=== PATIENT | female | born 1995 | race Caucasian/White ===

== ENCOUNTER 2017-09-21 07:47 | Day surgery (SDC) | payer BC, OTHER ==
[~2017-09-21 07:47] MED LIST: Lactated Ringers 1,000 ML IV SCH
[2017-09-21] MEDS ORDERED: Lidocaine 2% 100 MG/5 ML Syringe IVPUSH ONE (08:50)
[2017-09-21] MEDS ORDERED: Ondansetron 4 MG/2 ML SDV IVPUSH ONE (08:50)
[2017-09-21] MEDS ORDERED: Propofol 200 MG/20 ML SDV IV ONE (08:50)
--- NOTE | 2017-09-21 09:33 | PCM.OPNOTE ---
- General Post-Op/Procedure Note Date of Surgery/Procedure: 09/21/17 Operative Procedure(s): egd with bx. c scope with bx Findings: gastritis esophagitis normal appearing colon and duodenum Pre Op Diagnosis: Hx of abd pain, nausea vomiting, diarrhea bloating and blood per rectum. family hx of Crohn's disease Post-Op Diagnosis: gastritis. esophagitis. normal appearing colon and duodenum Anesthesia Technique: MAC Primary Surgeon: Alfred Weaver Anesthesia Provider: Kendrick Bhatia Pathology: stomach duodenum esophagus colon Complications: None Condition: Good Free Text/Narrative:: see dictation
[2017-09-21 11:39] VITALS: BP 106/61
--- NOTE | 2017-09-21 14:20 | OR ---
DATE OF OPERATION: 09/21/2017 SURGEON: Alfred Weaver MD PROCEDURES PERFORMED: 1. EGD with cold forceps biopsy. 2. Colonoscopy with cold forceps biopsy. PREOPERATIVE DIAGNOSES: 1. History of abdominal pain and bloating. 2. Nausea, vomiting, diarrhea, and blood per rectum. POSTOPERATIVE DIAGNOSES: 1. Gastritis. 2. Esophagitis. 3. Normal colonoscopy. INDICATIONS FOR PROCEDURE: This is a 21-year-old white female who is referred with the above-mentioned complaints. She has a longstanding history of anxiety as well as Crohn disease in her family. Workup to date has been negative. She was offered and accepted an EGD as well as a colonoscopy to further delineate her issues. DESCRIPTION OF PROCEDURE: After an excellent IV sedation was administered, the bite block was inserted. The flexible endoscope was passed without difficulty down the patient's esophagus and into the stomach. The stomach was insufflated. The scope was passed through the pylorus to the second portion of the duodenum and then slowly withdrawn. The following findings were noted. Duodenum was unremarkable and random biopsies were taken to rule out celiac disease. Stomach, diffuse gastritis, biopsies were taken. GE junction measured 40 cm. The esophagus demonstrated diffuse erythema and biopsies were taken as well. The stomach was deflated, and the scope was removed. Our attention was then turned to the colon. Digital rectal exam was performed. No marked abnormality was noted. The flexible colonoscope was inserted and advanced without difficulty to the cecum. Attempts to intubate the terminal ileum were not successful. The scope was then slowly withdrawn. Random biopsies being taken throughout, and the following findings were noted. Ascending colon, unremarkable. Transverse colon, unremarkable. Descending colon, unremarkable. Sigmoid and rectum, unremarkable. Colon was deflated as the scope was removed. The patient tolerated the procedure well and was taken to Recovery in a good condition. /[id number] /MODL
--- NOTE | 2017-09-22 07:31 | PREOP ---
ADMISSION DATE: 09/21/2017 HISTORY OF PRESENT ILLNESS: This is a 21-year-old white female, who has a longstanding history of abdominal pain and diarrhea, and she reports that this has always been associated with anxiety and started in high school. Apparently, while she was in college, she noted an increase in diarrhea and need to run to the bathroom. This is exacerbated by the types of food that she ate as well. Recently, she was having worsening of her symptoms and was started on dicyclomine. This has helped with abdominal pain, which is essentially crampy in nature, but she does note now that she is having more issues with nausea and vomiting. This can lead to syncopal issues as well. Blood test for celiac disease was negative. She does have a family history of Crohn's disease with a grandmother. She denies any fever, chills, difficulty swallowing, reflux, or weight loss. Symptoms are better when she is at home and can control what she eats, as well as the portion size. SOCIAL HISTORY: The patient smokes and drinks alcohol on occasion. She is single. PAST MEDICAL HISTORY: None. PAST SURGICAL HISTORY: None. FAMILY HISTORY: As noted in the HPI. CURRENT MEDICATIONS: Dicyclomine 20 mg by mouth 3 times a day on a p.r.n. basis. REVIEW OF SYSTEMS: HEENT: Negative for trouble swallowing or voice changes. Eyes were negative. RESPIRATORY: Negative. CARDIOVASCULAR: Positive for occasional palpitations. GI: Positive for abdominal distention, pain, anal bleeding, blood in stool, diarrhea, nausea, and vomiting. : Negative. MUSCULOSKELETAL: Positive for back pain and neck stiffness. SKIN: Negative. NEUROLOGIC: Positive for occasional syncope. PHYSICAL EXAMINATION: GENERAL: This is a well-developed, well-nourished female, appearing in no acute distress. VITAL SIGNS: Stable. She is afebrile. HEENT: Grossly within normal limits. LUNGS: Clear to auscultation. HEART: Had a regular rate and rhythm. ABDOMEN: Soft, nontender, distention was noted. NEUROLOGIC: She is alert. SKIN: Warm and dry. ASSESSMENT: Generalized abdominal pain with nausea, vomiting, diarrhea, unspecified type, family history of Crohn's disease, and anxiety. PLAN: Given her history of her symptoms, this appears to be related more to anxiety. However, with a family history of Crohn's disease, more extensive workup was felt to be indicated. We will be proceeding with an upper and lower endoscopy. This will allow us to examine the stomach, colon, duodenum, and terminal ileum. INFORMED CONSENT: Procedure and risks were explained to the patient to include bleeding, perforation, and infection. The patient expresses understanding and she asked us to proceed. /[id number] /MODL
== END 2017-09-21 10:27 | disposition home or self-care (01) ==
LOC: FB.SDS 07:47
PROVIDERS: ATTEND Surgery
DX: K62.5 Hemorrhage of anus and rectum (principal); R19.7 Diarrhea, unspecified; K29.50 Unspecified chronic gastritis without bleeding; K29.80 Duodenitis without bleeding; K20.9 Esophagitis, unspecified; F17.200 Nicotine dependence, unspecified, uncomplicated; F41.9 Anxiety disorder, unspecified; Z83.79 Family history of other diseases of the digestive system
CPT/HCPCS: 43239; 45380; 81025; 88305; 88313; 88342; J2001; J2405; J2704; J7120